=== PATIENT | female | born 1985 | race Caucasian/White ===

== ENCOUNTER 2021-12-30 12:34 | Inpatient (IN) | payer MEDICAID ==
[~2021-12-30] VITALS: Ht 167.6 cm; Wt 79.4 kg
[2021-12-30] MEDS ORDERED: NALOXONE HCL 0.4 MG/ML 1ML VIAL IM PRN (14:00)
[2021-12-30] MEDS ORDERED: METHYLERGONOVINE MALEATE 0.2 MG/ML IM PRN (14:00)
[2021-12-30] MEDS ORDERED: CARBOPROST TROMETHAMINE 250 MCG/ML AMPUL IM PRN (14:00)
[2021-12-30] MEDS ORDERED: OXYTOCIN 30 UNITS/500ML NS PMX 500 ML IV SCH ×2 (14:00→20:30)
[2021-12-30] MEDS ORDERED: BUTORPHANOL TARTRATE 2 MG/ML VIAL IV PRN (14:00)
[2021-12-30] MEDS ORDERED: LIDOCAINE HCL 1% 20ML VIAL (Pyxis) INJ INFIL SCH (14:00)
[2021-12-30] MEDS: LACTATED RINGERS 1,000 ML IV SCH ×2 (15:28→18:30)
[2021-12-30] MEDS ORDERED: PENICILLIN G POTASSIUM 5 MMU in DEXT 5% WATER 100 ML IV NR (15:30)
[2021-12-30 15:56] LABS: BASOPHILS % 0.2 % (0.0-2.0); EOSINOPHILS % 0.2 % (0.0-5.0); HEMATOCRIT. 38.6 % (36.0-48.0); MEAN CORPUSCULAR HEMOGLOBIN 30.7 pg (28.0-32.0); MEAN CORPUSCULAR VOLUME 90.8 fL (81.0-99.0); NEUTROPHILS % 75.6 % (40.0-76.0); PLATELET 192 x1000/uL (130-400); RED BLOOD CELL COUNT 4.25 mill/uL (4.2-5.4); RED CELL DISTRIBUTION WIDTH 15.1 % (11.6-14.6)
[2021-12-30 16:02] LABS: INR 0.9; PARTIAL THROMBOPLASTIN TIME 28.2 sec (23.4-31.0); PROTHROMBIN TIME 9.8 sec (9.6-11.0)
[2021-12-30 17:29] LABS: CLARITY URINE CLEAR (CLEAR); COLOR URINE YELLOW (YELLOW); KETONES URINE NEGATIVE (NEGATIVE); LEUKOCYTE ESTERASE URINE 2+ (NEGATIVE); NITRITE URINE NEGATIVE (NEGATIVE); OCCULT BLOOD URINE 2+ (NEGATIVE); PH URINE 5.5 (4.5-8.0); PROTEIN URINE NEGATIVE (NEGATIVE); UROBILINOGEN URINE 0.2 E.U./dL (0.2-1.0)
[2021-12-30 17:42] LABS: *AMPHETAMINES SCREEN URINE NEGATIVE (NEGATIVE); *BARBITURATES SCREEN URINE NEGATIVE (NEGATIVE); *BENZODIAZEPINES SCREEN URINE NEGATIVE (NEGATIVE); *COCAINE SCREEN URINE NEGATIVE (NEGATIVE); CANNABINOID URINE SCREEN NEGATIVE (NEGATIVE); METHADONE URINE SCREEN NEGATIVE (NEGATIVE); OPIATES URINE SCREEN NEGATIVE (NEGATIVE); PHENCYCLIDINE URINE SCREEN NEGATIVE (NEGATIVE)
[2021-12-30] MEDS ORDERED: ROPIVACAINE HCL/PF EPIDURAL 200 ML EPI SCH (18:15)
[2021-12-30] MEDS ORDERED: ROPIVACAINE HCL/PF EPIDURAL 0 ML EPI ONE (18:16)
[2021-12-30] MEDS ORDERED: PENICILLIN G POTASSIUM 2.5 MMU in DEXTROSE 5% WATER 50 ML IV SCH (20:00)
[2021-12-30] MEDS ORDERED: BISACODYL 10MG SUPP PR PRN (20:30)
[2021-12-30] MEDS ORDERED: OXYCODONE HCL/ACETAMINOPHEN 5/325MG TABLET PO PRN (20:30)
[2021-12-30] MEDS ORDERED: DIPHENHYDRAMINE 25MG CAPSULE PO PRN (20:30)
[2021-12-30] MEDS ORDERED: GLYCERIN/WITCH HAZEL LEAF MEDICATED PAD TOP PRN (20:30)
[2021-12-30] MEDS ORDERED: BENZOCAINE/LANOLIN/ALOE VERA SPRAY TOP PRN (20:30)
[2021-12-30] MEDS ORDERED: RHO(D) IMMUNE GLOBULIN 300 MCG/SYR IM PRN (20:30)
[2021-12-30] MEDS ORDERED: IBUPROFEN 800MG TABLET PO PRN (20:30)
[2021-12-30] MEDS ORDERED: HEMORRHOIDAL SUPP PR PRN (20:30)
[2021-12-30] MEDS ORDERED: LANOLIN OINT 7GM TUBE TOP PRN (20:30)
[2021-12-30] MEDS ORDERED: IBUPROFEN 400MG TABLET PO PRN (20:30)
[2021-12-30 20:50] VITALS: BP 120/69
[2021-12-30 21:30] VITALS: BP 124/69
[2021-12-30 22:00] VITALS: BP 118/65
[2021-12-31 03:30] VITALS: BP 111/61
[2021-12-31 07:11] LABS: BASOPHILS % 0.2 % (0.0-2.0); EOSINOPHILS % 0.1 % (0.0-5.0); HEMATOCRIT. 33.2 % (36.0-48.0); HEMOGLOBIN. 11.2 g/dL (12.0-16.0); LYMPHOCYTES % 14.6 % (20.0-50.0); MEAN CORPUSCULAR HEMOGLOBIN 30.8 pg (28.0-32.0); MEAN CORPUSCULAR VOLUME 91.8 fL (81.0-99.0); MEAN PLATELET VOLUME 9.1 fl (7.4-10.4); NEUTROPHILS % 78.1 % (40.0-76.0); PLATELET 162 x1000/uL (130-400); RED BLOOD CELL COUNT 3.62 mill/uL (4.2-5.4); RED CELL DISTRIBUTION WIDTH 14.9 % (11.6-14.6)
[2021-12-31] MEDS: MAGNESIUM/ALUMINUM HYDROXIDE/SIMETHICONE 30ML UDC PO SCH ×4 (07:30→22:20)
[2021-12-31] MEDS: SIMETHICONE 80MG TABLET CHEW PO SCH ×4 (07:50→22:20)
[2021-12-31 08:00] VITALS: BP 100/63
[2021-12-31] MEDS: FERROUS SULFATE 325MG TABLET PO SCH ×3 (08:08→17:30)
[2021-12-31] MEDS ORDERED: PRENATAL VIT/FE FUMARATE/FA TABLET PO SCH (09:00)
[2021-12-31 15:26] VITALS: BP 110/60
[2021-12-31 20:00] VITALS: BP 109/61
[2021-12-31] MEDS: DOCUSATE SODIUM 100MG CAPSULE PO SCH ×2 (21:00→22:20)
[2022-01-01 04:04] VITALS: BP 107/64
[2022-01-01] MEDS ORDERED: IBUP-2030 PO (07:10)
[2022-01-01] MEDS: FERROUS SULFATE 325MG TABLET PO SCH (07:30)
[2022-01-01] MEDS: MAGNESIUM/ALUMINUM HYDROXIDE/SIMETHICONE 30ML UDC PO SCH (07:30)
[2022-01-01] MEDS: SIMETHICONE 80MG TABLET CHEW PO SCH (07:46)
[2022-01-01 07:52] VITALS: BP 117/75
[2022-01-01 08:08] LABS: HBSAG SCREEN Negative (Negative)
== END 2022-01-01 11:10 | disposition home or self-care (01) | DRG 560 ==
LOC: OBSVTOIN 12:34 → 8 EST LDRP 12:34 → 8EST 20:25
PROVIDERS: ADMIT Obstetrics & Gynecology; ATTEND Obstetrics & Gynecology
PROC: 10E0XZZ Delivery of Products of Conception, External Approach (ICD-10-PCS; principal; 2022-01-01)
DX: O80 Encounter for full-term uncomplicated delivery (principal); Z37.0 Single live birth; Z20.822 Contact with and (suspected) exposure to COVID-19; Z3A.39 39 weeks gestation of pregnancy
CPT/HCPCS: 36415; 76805; 76818; 80305; 81003; 82947; 82962; 85025; 86592; 86703; 86762; 86850; 86900; 87340; 87426; J2540; J2795; J7060; J7120; A4315; J2590